=== PATIENT | male | born 1940 | race Caucasian/White ===

== ENCOUNTER 2016-09-20 14:07 | Inpatient (IN) | payer OTHER ==
[~2016-09-20] VITALS: Ht 172.7 cm; Wt 78.9 kg
--- NOTE | ~2016-09-20 | CON ---
[place], [place] REPORT OF CONSULTATION NAME: ANNE SETH UNIT #: [id number] ROOM: 416 DOCTOR: LINDA MIX MD BIRTHDATE: [birth year] DOS: 09/21/2016 ATTENDING PHYSICIAN: Nafisa Mock DO CHIEF COMPLAINT: Epistaxis. HISTORY OF PRESENT ILLNESS: The patient is a 76-year-old white male who is on chronic oral anticoagulation. He presented to the Emergency Department with left-sided epistaxis. He is found to be coagulopathic with an INR above 4. His left nasal cavity was packed with a Rhino Rocket and was subsequently admitted. PAST MEDICAL HISTORY: Chronic kidney disease, congestive heart failure, atrial fibrillation, COPD, diabetes mellitus, hyperlipidemia, hypertension and history of AL. PAST SURGICAL HISTORY: Includes pacemaker insertion, coronary artery bypass graft x 3 and mitral valve replacement. CURRENT MEDICATIONS: Requip, potassium, Pepcid, Cardura, insulin, Lipitor, temazepam, Lasix, Solu-Medrol and DuoNeb. ALLERGIES: No known drug allergies. PHYSICAL EXAMINATION: GENERAL: The patient was examined at the bedside, where he has a Rhino Rocket and some active bleeding. VITAL SIGNS: Temperature 97.6 oral, pulse 75, respiratory rate 20, blood pressure 137/66. Decision was made to repack the nasal cavity. The patient was taken down the stairs to the OR, where the Rhino Rocket was removed and replaced with a second Rhino Rocket surrounded by Surgicel. The repacking was secured and adequately controlled all bleeding. IMPRESSION: 1. Recurrent epistaxis. 2. Coumadin coagulopathy. PLAN: Packing will be left in place for an additional 24 hours. The patient should be on antibiotic prophylaxis because of the packing. Antibiotics will be ordered. [place], [place] REPORT OF CONSULTATION NAME: SAMLEILANIDENISANNE UNIT #: [id number] ROOM: 416 DOCTOR: LINDA MIX MD BIRTHDATE: [birth year] LINDA MIX MD CM:CONSTR:REPORT OF CONSULTATION 1350 09/21/16 1411 interface
--- NOTE | ~2016-09-20 | CON ---
[place], [place] RE[facility] OF CON[facility]ATION [id number] UN[facility] #: [id number] ROOM: 416 DOCTOR: BING OCAMPOBEAN BIRTHDATE: [birth year] DOS: 09/22/2016 HISTORY OF PRESENT ILLNESS: I was asked to see this 76-year-old male in his room on the 4th floor for epistaxis. He was admitted to the hospital yesterday after having bleeding from the left side of his nose. A Rapid Rhino pack was placed and tonight, the patient pulled it out. Staff will concern because of the amount of bleeding after the partial removal of the pack. The patient is taking Coumadin for atrial fibrillation and a mechanical heart valve. The patient states that he has had problems with nosebleed in the past and the resident tells me that most of the time, the bleeding has been related to trauma from picking his nose. The patient denies any fever or chills. He has had no nausea or vomiting and no diarrhea. The Coumadin continues to be on hold and ENT has been consulted, but he will not be seen until later today. He has chronic kidney disease and multiple other medical problems. The patient was unable to give me too much information. He did, however, say that he was not having any palpitations, shortness of breath or cough and he did not feel any blood in the back of his throat. PHYSICAL EXAMINATION: VITAL SIGNS: Temperature 98.2, heart rate 82 beats per minute, respirations 18, blood pressure 143/82, pulse oximetry on room air 98% indicating normal oxygenation. GENERAL: He is alert, awake. Skin is pale. HEENT: Conjunctiva is pale. He has got blood dripping out of the left side of his nose. NECK: Without masses or tenderness. CHEST: Symmetrical. LUNGS: Clear. HEART: Irregularly irregular. Heart rate 82 beats per minute. No murmurs appreciated. ABDOMEN: Rounded, soft, nontender. Bowel sounds are present in all 4 quadrants. EXTREMITIES: Chronic stasis dermatitis in the lower extremities, moderate edema. Pulses are 1+. After obtaining permission from the patient to remove the current pack from the left side of his nose and replace it with a pack that is positioned correctly to control bleeding. The patient agreed to the procedure. A Rapid Rhino 7.5 cm was used. It was soaked in saline and inserted into the left naris without any difficulty. The cuff was inflated as directed and patient tolerates the procedure well. I discussed the patient's status with the resident and the resident will order a.m. labs, specifically coagulation status. It is expected that Dr. Hardwick will see him later. The resident will call me if there are any further problems in the next 5 or 6 hours. [place], [place] REPORT OF CONSULTATION NAME: ANNE SETH UNIT #: [id number] ROOM: [facility] DOCTOR: BEAN SMART MD BIRTHDATE: [birth year] BEAN SMART MD CM:CONSTR:REPORT OF CONSULTATION 0135 09/22/16 1046 interface
--- NOTE | ~2016-09-20 | PR ---
[place], [place] PROGRESS NOTE [id number] UNIT #: [id number] ROOM: 416 DOCTOR: LINDA MIX MD BIRTHDATE: [birth year] DOS: 09/22/2016 FOLLOWUP PROGRESS NOTE SUBJECTIVE: The patient was seen in followup for epistaxis. He has had no further bleeding. The packing in the left nasal cavity was removed without difficulty and he tolerated this well. The patient was coagulopathic with an INR of 4.5 on admission. His INR has decreased to 2.5. His hemoglobin is stable at 11.5, white blood cell count 9.6. IMPRESSION: 1. Coagulopathy. 2. History of recurrent left-sided epistaxis. PLAN: From an ENT standpoint, the patient experiences no further significant bleeding. He should be cleared to be discharged to home tomorrow. LINDA MIX MD CM:PNTRANS [id number] LINDA MIX MD 09/23/16 0445 interface
[2016-09-20 14:14] VITALS: BP 133/86
[2016-09-20] MEDS ORDERED: CARVEDILOL25 MG PO (14:15)
[2016-09-20] MEDS ORDERED: ROSUVASTATIN CA20 MG PO (14:19)
[2016-09-20] MEDS ORDERED: JANTOVEN5 MG PO (14:19)
[2016-09-20] MEDS ORDERED: ASPIRIN CHEWABL81 MG PO (14:20)
[2016-09-20] MEDS ORDERED: POTASSIUM CHLO10 ME5 PO (14:20)
[2016-09-20] MEDS ORDERED: ANTACID II 1601 CTB PO (14:21)
[2016-09-20] MEDS ORDERED: RANITIDINE HCL150 M1 PO (14:21)
[2016-09-20] MEDS ORDERED: ONDANSETRON HYDR4 MG PO (14:22)
[2016-09-20] MEDS ORDERED: FUROSEMIDE40 MG PO (14:22)
[2016-09-20] MEDS ORDERED: METOLAZONE5 MG PO (14:23)
[2016-09-20] MEDS ORDERED: DOXAZOSIN MESYLA4 MG PO (14:24)
[2016-09-20 14:54] LABS: BASO % 0.6 % (0.0-1.0); EOS # 0.1 10*3/uL (0.0-0.4); HEMATOCRIT 35.9 % (42.0-52.0); HEMOGLOBIN 11.7 g/dl (14.0-18.0); LYMPH # 0.5 10*3/uL (1.3-4.4); LYMPH % 9.1 % (27.0-41.0); MEAN CELL VOLUME 99.7 fl (80.0-94.0); MEAN CORPUSCULAR HGB 32.5 pg (27.0-31.0); MEAN CORPUSCULAR HGB CONC 32.6 g/dl (33.0-37.0); MEAN PLATELET VOLUME 11.8 fl (9.6-12.3); MONO # 0.3 10*3/uL (0.1-1.0); MONO % 6.8 % (3.0-9.0); NEUT # 4.1 10*3/uL (2.3-7.9); NEUT % 82.1 % (47.0-73.0); PLATELET COUNT AUTOMATED 129 10*3/uL (130-400); RED CELL DISTRI WIDTH 16.9 % (0-14.5)
[2016-09-20 15:03] LABS: INTERNATIONAL NORM RATIO 4.5 (2.0-3.5); PROTHROMBIN TIME 52.9 SECONDS (9.0-12.4)
[2016-09-20 15:11] LABS: ALBUMIN 2.5 gm/dl (3.1-4.5); BILIRUBIN, TOTAL 1.3 mg/dl (0.2-1.0); C-REACTIVE PROTEIN 4.45 MG/DL (0-0.3); MAGNESIUM 2.2 mg/dL (1.5-2.1); POTASSIUM 3.2 mmol/L (3.5-5.1); TOTAL PROTEIN 6.9 gm/dL (6.4-8.2); TROPONIN I 0.037 ng/ml (<0.045)
[2016-09-20] MEDS ORDERED: LANTUS100 U/ML SQ (15:23)
[2016-09-20] MEDS ORDERED: NOVOLOG10 ML SQ (15:25)
[2016-09-20] MEDS ORDERED: LASIX40 MG PO ×2 (16:23→18:44)
[2016-09-20 17:07] VITALS: BP 107/57
[2016-09-20 18:15] VITALS: BP 119/82
[2016-09-20 18:20] LABS: CKMB 3.1 ng/ml (0.5-3.6); TROPONIN I 0.035 ng/ml (<0.045)
[2016-09-20] MEDS ORDERED: COUMADIN2.5 MG PO (18:44)
[2016-09-20 20:00] VITALS: BP 127/66
[2016-09-21] VITALS (7 sets, daily range): BP systolic 120–154; BP diastolic 57–93
[2016-09-21 00:41] LABS: CKMB 4.2 ng/ml (0.5-3.6); TROPONIN I 0.03 ng/ml (<0.045)
[2016-09-21 06:05] LABS: MAGNESIUM 2.3 mg/dL (1.5-2.1); PHOSPHOROUS 4.1 mg/dL (2.5-4.9); POTASSIUM 3.6 mmol/L (3.5-5.1); TROPONIN I 0.027 ng/ml (<0.045)
[2016-09-21 06:07] LABS: HEMATOCRIT 36.7 % (42.0-52.0); HEMOGLOBIN 11.8 g/dl (14.0-18.0); MEAN CELL VOLUME 101.4 fl (80.0-94.0); MEAN CORPUSCULAR HGB 32.6 pg (27.0-31.0); MEAN CORPUSCULAR HGB CONC 32.2 g/dl (33.0-37.0); MEAN PLATELET VOLUME 12.1 fl (9.6-12.3); PLATELET COUNT AUTOMATED 121 10*3/uL (130-400); RED BLOOD COUNT 3.62 10*6/uL (4.50-5.90); RED CELL DISTRI WIDTH 16.9 % (0-14.5); WHITE BLOOD COUNT 4.3 10*3/uL (4.8-10.8)
[2016-09-21 06:09] LABS: CKMB 5.4 ng/ml (0.5-3.6)
[2016-09-21 06:10] LABS: HEMOGLOBIN A1c 9.1 % (4.8-5.6)
[2016-09-21 06:15] LABS: INTERNATIONAL NORM RATIO 3.8 (2.0-3.5); PROTHROMBIN TIME 43.7 SECONDS (9.0-12.4)
[2016-09-21 06:36] LABS: LYMPHOCYTE # 0.1 10*3/uL (1.3-4.4); MONOCYTE # 0.2 10*3/uL (0.1-1.0); NEUTROPHILS 92 % (47-73); PLATELET SUFFICIENCY LOW (NORMAL); TOTAL CELLS COUNTED 100 #CELLS
[2016-09-21 06:53] LABS: VITAMIN D, 25-HYDROXY 41.1 ng/mL (30-100)
[2016-09-21 06:54] LABS: FOLIC ACID > 24.00 ng/mL (>5.38)
[2016-09-21 20:28] LABS: BILIRUBIN NEGATIVE (NEGATIVE); BLOOD 2+ (NEGATIVE); CLARITY CLEAR (CLEAR); COLOR YELLOW (YELLOW); GLUCOSE NEGATIVE (NEGATIVE); KETONE NEGATIVE (NEGATIVE); LEUKO ESTERASE 2+ (NEGATIVE); NITRITE NEGATIVE (NEGATIVE); PROTEIN TRACE (NEGATIVE); UROBILINOGEN 0.2 E.U./dl (0.2-1.0)
[2016-09-21 20:38] LABS: BACTERIA 3+; WBC 21-30 wbc/hpf (0-5)
[2016-09-22] VITALS: BP 121/66
[2016-09-22 07:03] LABS: HEMATOCRIT 35.4 % (42.0-52.0); HEMOGLOBIN 11.5 g/dl (14.0-18.0); MEAN CELL VOLUME 100.6 fl (80.0-94.0); MEAN CORPUSCULAR HGB 32.7 pg (27.0-31.0); MEAN CORPUSCULAR HGB CONC 32.5 g/dl (33.0-37.0); MEAN PLATELET VOLUME 12.1 fl (9.6-12.3); PLATELET COUNT AUTOMATED 126 10*3/uL (130-400); RED BLOOD COUNT 3.52 10*6/uL (4.50-5.90); RED CELL DISTRI WIDTH 16.8 % (0-14.5); WHITE BLOOD COUNT 9.6 10*3/uL (4.8-10.8)
[2016-09-22 07:35] LABS: POTASSIUM 3.9 mmol/L (3.5-5.1)
[2016-09-22 07:37] LABS: INTERNATIONAL NORM RATIO 2.5 (2.0-3.5); PROTHROMBIN TIME 28.4 SECONDS (9.0-12.4)
[2016-09-22 08:00] VITALS: BP 132/91
[2016-09-22 08:05] LABS: LYMPHOCYTE # 0.1 10*3/uL (1.3-4.4); MONOCYTE # 0.2 10*3/uL (0.1-1.0); NEUTROPHIL # 9.3 10*3/uL (2.3-7.9); NEUTROPHILS 97 % (47-73); PLATELET SUFFICIENCY LOW (NORMAL); TOTAL CELLS COUNTED 100 #CELLS
[2016-09-22 12:00] VITALS: BP 119/70
[2016-09-22 16:00] VITALS: BP 149/60
[2016-09-22 20:00] VITALS: BP 116/59
[2016-09-23] VITALS: BP 132/69
[2016-09-23 05:45] LABS: POTASSIUM 3.7 mmol/L (3.5-5.1)
[2016-09-23 05:55] LABS: BASO % 0.1 % (0.0-1.0); EOS % 0.1 % (1.0-4.0); HEMATOCRIT 34.4 % (42.0-52.0); HEMOGLOBIN 11.6 g/dl (14.0-18.0); LYMPH # 0.4 10*3/uL (1.3-4.4); LYMPH % 5.4 % (27.0-41.0); MEAN CORPUSCULAR HGB CONC 33.7 g/dl (33.0-37.0); MEAN PLATELET VOLUME 12.6 fl (9.6-12.3); MONO # 0.6 10*3/uL (0.1-1.0); MONO % 7.9 % (3.0-9.0); NEUT # 6.5 10*3/uL (2.3-7.9); NEUT % 86.4 % (47.0-73.0); PLATELET COUNT AUTOMATED 120 10*3/uL (130-400); RED BLOOD COUNT 3.51 10*6/uL (4.50-5.90); RED CELL DISTRI WIDTH 16.8 % (0-14.5); WHITE BLOOD COUNT 7.5 10*3/uL (4.8-10.8)
[2016-09-23 08:00] VITALS: BP 128/72
== END 2016-09-23 11:45 | disposition home health service (06) | DRG 150 ==
LOC: ED 14:07 → EDHOLD 16:02 → 4E 16:02
PROVIDERS: Internal Medicine; Student in an Organized Health Care Education/Training Program
PROC: 2Y41X5Z Packing of Nasal Region using Packing Material (ICD-10-PCS; principal; 2016-09-20)
DX: R04.0 Epistaxis (principal); E43 Unspecified severe protein-calorie malnutrition; E11.621 Type 2 diabetes mellitus with foot ulcer; D68.9 Coagulation defect, unspecified; E11.22 Type 2 diabetes mellitus with diabetic chronic kidney disease; I50.9 Heart failure, unspecified; I13.0 Hypertensive heart and chronic kidney disease with heart failure and stage 1 through stage 4 chronic kidney disease, or unspecified chronic kidney disease; E11.65 Type 2 diabetes mellitus with hyperglycemia; E87.1 Hypo-osmolality and hyponatremia; E87.6 Hypokalemia; D53.9 Nutritional anemia, unspecified; D69.6 Thrombocytopenia, unspecified; E83.41 Hypermagnesemia; J44.9 Chronic obstructive pulmonary disease, unspecified; E78.5 Hyperlipidemia, unspecified; N18.9 Chronic kidney disease, unspecified; L97.509 Non-pressure chronic ulcer of other part of unspecified foot with unspecified severity; T45.515A Adverse effect of anticoagulants, initial encounter; I48.91 Unspecified atrial fibrillation; Z95.1 Presence of aortocoronary bypass graft; Z95.2 Presence of prosthetic heart valve; Z68.26 Body mass index [BMI] 26.0-26.9, adult; Z95.0 Presence of cardiac pacemaker; Z87.891 Personal history of nicotine dependence; Z82.49 Family history of ischemic heart disease and other diseases of the circulatory system; Z79.4 Long term (current) use of insulin; Z79.82 Long term (current) use of aspirin; Z79.899 Other long term (current) drug therapy; I25.2 Old myocardial infarction